=== PATIENT | male | born 1985 | race Caucasian/White ===

== ENCOUNTER 2019-06-23 20:48 | Emergency (ER) | payer OTHER ==
[~2019-06-23] VITALS: Wt 69.4 kg
[2019-06-23 21:03] VITALS: BP 118/65; PULSE 76; RESP 16
== END 2019-06-24 00:26 | disposition home or self-care (01) ==
LOC: FTE 20:48
DX: S01.21XA Laceration without foreign body of nose, initial encounter (principal); F17.210 Nicotine dependence, cigarettes, uncomplicated; W22.8XXA Striking against or struck by other objects, initial encounter; Y92.9 Unspecified place or not applicable
CPT/HCPCS: 12011; Z7502